=== PATIENT | male | born 1935 | race Caucasian/White ===

== ENCOUNTER 2017-07-02 10:54 | Emergency (ER) | payer MEDICARE ==
[~2017-07-02 10:54] MED LIST: [UNRECOGNIZED DRUG - REMARK]
[2017-07-02 12:03] VITALS: BP 170/95
== END 2017-07-02 12:37 | disposition home or self-care (01) ==
LOC: ED 10:54
DX: J06.9 Acute upper respiratory infection, unspecified (principal); I10 Essential (primary) hypertension
CPT/HCPCS: Q0092

== ENCOUNTER 2017-08-23 14:59 | Emergency (ER) | payer MEDICARE ==
[~2017-08-23] VITALS: Ht 167.6 cm; Wt 75.3 kg
[2017-08-23 15:05] VITALS: BP 134/83; Ht 167.6 cm; Wt 75.3 kg
== END 2017-08-23 18:24 | disposition left against medical advice (07) ==
LOC: ED 14:59
DX: Z53.21 Procedure and treatment not carried out due to patient leaving prior to being seen by health care provider (principal)

== ENCOUNTER 2018-08-04 14:39 | Emergency (ER) | payer MEDICARE ==
[~2018-08-04] VITALS: Ht 165.1 cm; Wt 72.6 kg
[2018-08-04 14:41] VITALS: Ht 165.1 cm; Wt 72.6 kg
[2018-08-04 15:07] VITALS: BP 151/75
== END 2018-08-04 15:07 | disposition home or self-care (01) ==
LOC: ED 14:39
DX: R53.1 Weakness (principal); R11.0 Nausea; E11.65 Type 2 diabetes mellitus with hyperglycemia; I10 Essential (primary) hypertension; Z88.1 Allergy status to other antibiotic agents